=== PATIENT | female | born 1995 | race Caucasian/White ===

== ENCOUNTER → 2025-04-11 | Outpatient (REF) | payer OTHER ==
[2025-04-11 13:59] LABS: CALCIUM LEVEL 8.8 MG/DL (8.5-10.1); CARBON DIOXIDE LEVEL 28 MMOL/L (20-31); CHLORIDE LEVEL 106 MMOL/L (98-107); CHOLESTEROL LEVEL 84 MG/DL (<200); CHOLESTEROL RISK RATIO 3.83 (<5); CREATININE FOR GFR 0.85 MG/DL (0.55-1.30); GLOMERULAR FILTRATION RATE > 90.0 (>60); LDL CHOLESTEROL 46.9 MG/DL (<100); NON-HDL-C 62.1 MG/DL; POTASSIUM SERUM 4.5 MMOL/L (3.5-5.1); SODIUM LEVEL 143 MMOL/L (136-145); TRIGLYCERIDES LEVEL 76 MG/DL (<150)
[2025-04-11 14:18] LABS: ESTIMATED AVERAGE GLUCOSE 88.0 MG/DL (60-110); PLATELET COUNT, AUTOMATED 74 10^3/uL (150-450)
== END ==
LOC: M SFHCPLAZ 12:57
PROVIDERS: ATTEND Physician Assistant
DX: D64.9 Anemia, unspecified (principal); Z13.1 Encounter for screening for diabetes mellitus; H02.60 Xanthelasma of unspecified eye, unspecified eyelid; R53.82 Chronic fatigue, unspecified

== ENCOUNTER → 2025-05-16 | Outpatient (CLI) | payer OTHER | LOC: M CARPUL 13:54 | PROVIDERS: ATTEND Physician Assistant | DX: R42 Dizziness and giddiness (principal); R01.1 Cardiac murmur, unspecified; R60.0 Localized edema ==